=== PATIENT | male | born 1970 | race Caucasian/White ===

== ENCOUNTER 2016-06-19 19:40 | Emergency (ER) | payer OTHER ==
[~2016-06-19] VITALS: Ht 180.3 cm; Wt 99.8 kg
[~2016-06-19 19:40] MED LIST: AMLO5TAB2 PO; Acetaminophen PO; Carisoprodol PO; Docusate Sodium PO; Gabapentin PO; Hydrocodone Bit/Acetaminophen PO
[2016-06-19] MEDS ORDERED: CARISOPRODOL 350 MG TABLET PO ONE (20:15)
[2016-06-19] MEDS ORDERED: HYDROMORPHONE 1 MG/1 ML DISP.SYRIN IM ONE (20:15)
[2016-06-19] MEDS ORDERED: ONDANSETRON ODT 4 MG TAB.RAPDIS SL ONE (20:15)
[2016-06-19] MEDS ORDERED: CARISOPRODOL 350 MG TABLET ONE (20:20)
[2016-06-19] MEDS ORDERED: ONDANSETRON ODT 4 MG TAB.RAPDIS ONE (20:20)
[2016-06-19] MEDS ORDERED: HYDROMORPHONE 2 MG/1 ML DISP.SYRIN ONE (20:20)
--- NOTE | 2016-06-19 20:52 | NUR ---
Patient discharged to home in stable conditon. Written and verbal after care instructions given. Patient verbalizes understanding of instructions.
== END 2016-06-19 20:40 | disposition home or self-care (01) ==
LOC: ER 19:44
DX: M54.42 Lumbago with sciatica, left side (principal); I10 Essential (primary) hypertension; F10.20 Alcohol dependence, uncomplicated
CPT/HCPCS: 96372; 99283; A4663; J1170; Q0162

== ENCOUNTER 2016-06-21 16:13 | Emergency (ER) | payer OTHER ==
[~2016-06-21] VITALS: Ht 180.3 cm; Wt 99.8 kg
[2016-06-21] MEDS ORDERED: HYDROMORPHONE 1 MG/1 ML DISP.SYRIN IV ONE ×2 (16:45→18:00)
[2016-06-21] MEDS ORDERED: HYDROMORPHONE 1 MG/1 ML DISP.SYRIN ONE (16:54)
[2016-06-21] MEDS ORDERED: DIAZEPAM 10 MG/2 ML DISP.SYRIN IV ONE (17:15)
[2016-06-21] MEDS ORDERED: predniSONE 20 MG TABLET PO ONE (17:15)
--- NOTE | 2016-06-21 17:16 | NUR ---
Patient is resting on gurney with spouse at bedside,NAD. Comfort & safety measures maintained. Pillows behind the knees & head provided.
[2016-06-21] MEDS ORDERED: DIAZEPAM 10 MG/2 ML DISP.SYRIN ONE (17:20)
[2016-06-21] MEDS ORDERED: predniSONE 10 MG TABLET ONE (17:22)
[2016-06-21] MEDS ORDERED: predniSONE 50 MG TABLET ONE (17:22)
[2016-06-21] MEDS ORDERED: HYDROMORPHONE 2 MG/1 ML DISP.SYRIN ONE (18:10)
--- NOTE | 2016-06-21 18:15 | NUR ---
PATIENT HAS MARKED DECREASED PAIN AT THIS TIME. IV removed. Catheter intact and site benign. Pressure and 4x4 gauze applied to site. No bleeding noted. Patient discharged to home in stable conditon. Written and verbal after care instructions given to patient's spouse and patient. Patient and spouse verbalized understanding of instructions. Patient left ER with steady gait.
== END 2016-06-21 18:15 | disposition home or self-care (01) ==
LOC: ER 16:13
DX: M54.5 Low back pain (principal); M54.30 Sciatica, unspecified side; F10.10 Alcohol abuse, uncomplicated; I10 Essential (primary) hypertension; M54.16 Radiculopathy, lumbar region
CPT/HCPCS: 96374; 96375; 96376; 99284; A4663; J1170 ×2; J3360; J7512 ×2

== ENCOUNTER 2016-07-18 19:38 | Emergency (ER) | payer OTHER ==
[~2016-07-18] VITALS: Ht 180.3 cm; Wt 99.8 kg
--- NOTE | 2016-07-18 19:54 | NUR ---
PT HAS A HX OF BACKPAIN AND SCIATICA.PT STATES EVERYTHING WORSE SINCE MRI.PT STATES WILL SEE DR ON WEDNESDAY. PT IS ALERT, ORIENTED X 4, NO RESP DISTRESS NOTED OR REPORTED UPON ASSESSMENT... MD AT BEDSIDE...
[2016-07-18] MEDS ORDERED: predniSONE 20 MG TABLET PO ONE (20:45)
[2016-07-18] MEDS ORDERED: HYDROCODONE/APAP 10-325 MG TABLET PO ONE (20:45)
--- NOTE | 2016-07-18 20:53 | NUR ---
Patient discharged to home in stable conditon. Written and verbal after care instructions given. Patient verbalizes understanding of instructions. PT WALKED OUT OF ER UNASSISTED WITH BELONGNGS AT SIDE...
[2016-07-18 20:54] VITALS: BP 131/93
[2016-07-18] MEDS ORDERED: predniSONE 10 MG TABLET ONE (20:54)
[2016-07-18] MEDS ORDERED: HYDROCODONE/APAP 10-325 MG TABLET ONE (20:54)
[2016-07-18] MEDS ORDERED: predniSONE 50 MG TABLET ONE (20:55)
== END 2016-07-18 20:55 | disposition home or self-care (01) ==
LOC: ER 19:42
DX: M54.5 Low back pain (principal); G89.29 Other chronic pain; I10 Essential (primary) hypertension; F10.20 Alcohol dependence, uncomplicated
CPT/HCPCS: A4663; J7512